=== PATIENT | female | born 1995 | race Two or more races ===

== ENCOUNTER 2024-11-08 15:45 | Emergency (ER) | payer OTHER ==
[~2024-11-08] VITALS: Ht 167.6 cm; Wt 81.2 kg
[2024-11-08] MEDS ORDERED: DOXYCYCLINE HY200 MG PO (18:22)
[2024-11-08] MEDS ORDERED: CEFTRIAXONE SODIUM 1,000 MG VIAL IM ONE (18:30)
[2024-11-08] MEDS ORDERED: KETOROLAC TROMETHAMINE 30 MG VIAL IM ONE (18:45)
== END 2024-11-08 18:41 | disposition home or self-care (01) ==
LOC: ER 15:45
DX: I86.3 Vulval varices (principal); J45.909 Unspecified asthma, uncomplicated

== ENCOUNTER 2024-11-13 10:27 | Outpatient (CLI) | payer OTHER ==
[~2024-11-13 10:27] MED LIST: DOXYCYCLINE HY200 MG PO
[2024-11-13 11:46] LABS: BASO % 0.9 % (0.1-1.2); EOS # 0.58 (0.04-0.54); EOS % 6.0 % (0.7-7.0); LYMPH # 2.47 (1.18-3.74); LYMPH % 25.4 % (19.3-53.1); MEAN PLATELET VOLUME 9.70 fl (9.4-12.4); MONO # 0.63 (0.24-0.82); MONO % 6.5 % (4.7-12.5); NEUT # 5.93 (1.56-6.13); NEUT % 60.8 % (34.0-71.1); RED CELL DISTRIBUTION WIDTH 13.2 % (11.6-14.4)
[2024-11-13 11:56] LABS: URINE APPEARANCE Cloudy; URINE BILIRRUBIN Negative (NEGATIVE); URINE BLOOD Trace; URINE COLOR Yellow; URINE GLUCOSE Negative (NEGATIVE); URINE KETONE Trace (NEGATIVE); URINE LEUKOCYTE Large; URINE NITRATE Negative; URINE PROTEIN Trace (NEGATIVE); URINE UROBILINOGEN 0.2 E.U./dl
[2024-11-13 12:00] LABS: URINE RBC 47.0 uL (0.0-20.8); URINE WBC 346.3 uL (0.0-23.2)
[2024-11-13 13:13] LABS: URINE BACTERIA > 9821.5 uL (0.0-1933); URINE CAST 0.14 uL (0.0-1.40); URINE EPITHELIAL CELLS > 201.7 uL (0.0-38.8)
[2024-11-13 13:14] LABS: TYPE CELLS SQUAMOUS
[2024-11-13] MEDS ORDERED: ZOVIRAX400 MG PO (19:40)
[2024-11-13] MEDS ORDERED: PEPCID AC20 MG PO (19:40)
[2024-11-13] MEDS ORDERED: ZOVIRAX5 GM TOP (19:40)
[2024-11-15 07:10] LABS: HSV I IGG TYPE SPECIFIC Non Reactive (Non Reactive)
[2024-11-15 21:12] LABS: chla t Negative (Negative); neiss Negative (Negative)
== END 2024-11-13 10:32 | disposition home or self-care (01) ==
LOC: LAB 10:27
PROVIDERS: ATTEND Obstetrics & Gynecology
DX: N30.00 Acute cystitis without hematuria (principal); N76.2 Acute vulvitis; R10.2 Pelvic and perineal pain; E07.89 Other specified disorders of thyroid; A60.04 Herpesviral vulvovaginitis; A56.11 Chlamydial female pelvic inflammatory disease

== ENCOUNTER 2024-11-13 16:44 | Emergency (ER) | payer OTHER ==
[~2024-11-13] VITALS: Ht 167.6 cm; Wt 80.7 kg
[2024-11-13] MEDS ORDERED: KETOROLAC TROMETHAMINE 30 MG VIAL ONE (18:06)
[2024-11-13] MEDS ORDERED: ACYCLOVIR SODIUM 500 MG VIAL IV ONE (18:15)
[2024-11-13] MEDS ORDERED: KETOROLAC TROMETHAMINE 60 MG VIAL IM ONE (18:15)
[2024-11-13] MEDS ORDERED: PEPCID AC20 MG PO (19:40)
[2024-11-13] MEDS ORDERED: ZOVIRAX400 MG PO (19:40)
[2024-11-13] MEDS ORDERED: ZOVIRAX5 GM TOP (19:40)
== END 2024-11-13 20:07 | disposition home or self-care (01) ==
LOC: ER 16:45
DX: A60.00 Herpesviral infection of urogenital system, unspecified (principal); J45.909 Unspecified asthma, uncomplicated

== ENCOUNTER 2024-11-14 15:18 | Emergency (ER) | payer OTHER ==
[~2024-11-14] VITALS: Ht 167.6 cm; Wt 80.7 kg
[~2024-11-14 15:18] MED LIST changes: +PEPCID AC20 MG PO; +ZOVIRAX400 MG PO; +ZOVIRAX5 GM TOP
== END 2024-11-14 23:12 | disposition home or self-care (01) ==
LOC: ER 15:35
DX: B02.9 Zoster without complications (principal); A60.00 Herpesviral infection of urogenital system, unspecified; N39.0 Urinary tract infection, site not specified

== ENCOUNTER → 2024-12-06 06:19 | Outpatient (CLI) | payer OTHER ==
[2024-12-06 07:14] LABS: URINE APPEARANCE Clear; URINE BILIRRUBIN Negative (NEGATIVE); URINE BLOOD Negative; URINE COLOR Yellow; URINE GLUCOSE Negative (NEGATIVE); URINE KETONE Negative (NEGATIVE); URINE LEUKOCYTE Negative; URINE NITRATE Negative; URINE PROTEIN Negative (NEGATIVE); URINE UROBILINOGEN 0.2 E.U./dl
[2024-12-06 07:18] LABS: URINE BACTERIA 665.9 uL (0.0-1933); URINE EPITHELIAL CELLS 17.3 uL (0.0-38.8); URINE WBC 5.9 uL (0.0-23.2)
[2024-12-06 07:27] LABS: URINE CAST 0.00 uL (0.0-1.40); URINE RBC 1.9 uL (0.0-20.8)
[2024-12-06 07:29] LABS: BASO % 0.9 % (0.1-1.2); EOS # 0.62 (0.04-0.54); EOS % 7.2 % (0.7-7.0); LYMPH # 2.84 (1.18-3.74); LYMPH % 32.9 % (19.3-53.1); MEAN PLATELET VOLUME 9.60 fl (9.4-12.4); MONO # 0.67 (0.24-0.82); MONO % 7.8 % (4.7-12.5); NEUT # 4.39 (1.56-6.13); NEUT % 50.9 % (34.0-71.1); RED CELL DISTRIBUTION WIDTH 13.2 % (11.6-14.4)
[2024-12-06 07:36] LABS: INR 1.02
[2024-12-06 07:42] LABS: ALT/SGPT 26.0 U/L (12-78); AST/SGOT 11.0 U/L (15-37); BILIRUBIN TOTAL 0.47 mg/dL (0.3-1.2); BUN CREA RATIO 27.0 (7.0-25.0); CREATININE SERUM 0.73 mg/dL (0.55-1.02); GFR 94.93; GLOBULINA 3.3 G/DL (2.4-3.5); GLUCOSE FASTING 85.0 mg/dL (65-100); OSMOLALITY SERUM 283.0 MOSM/KG (275-295)
== END | disposition home or self-care (01) ==
LOC: LAB 06:19
PROVIDERS: ATTEND Plastic Surgery
DX: D68.9 Coagulation defect, unspecified (principal)

== ENCOUNTER 2024-12-06 07:06 | Outpatient (CLI) | payer OTHER | END 2024-12-06 07:09 | disposition home or self-care (01) | LOC: RAD 07:06 | PROVIDERS: ATTEND Plastic Surgery | DX: N64.59 Other signs and symptoms in breast (principal); Z41.1 Encounter for cosmetic surgery; Z01.811 Encounter for preprocedural respiratory examination ==

== ENCOUNTER 2025-02-06 09:47 | Emergency (ER) | payer OTHER ==
[~2025-02-06] VITALS: Ht 167.6 cm; Wt 77.1 kg
[2025-02-06 10:26] VITALS: BP 121/76; O2SAT 99
[2025-02-06] MEDS ORDERED: 0.9 % SODIUM CHLORIDE 500 ML IV SCH (11:45)
[2025-02-06] MEDS ORDERED: KETOROLAC TROMETHAMINE 30 MG VIAL IV ONE (11:45)
[2025-02-06 12:39] LABS: BASO % 0.9 % (0.1-1.2); EOS # 0.48 (0.04-0.54); EOS % 5.8 % (0.7-7.0); LYMPH # 2.13 (1.18-3.74); LYMPH % 25.9 % (19.3-53.1); MEAN PLATELET VOLUME 9.30 fl (9.4-12.4); MONO # 0.50 (0.24-0.82); MONO % 6.1 % (4.7-12.5); NEUT # 5.03 (1.56-6.13); NEUT % 61.1 % (34.0-71.1); RED CELL DISTRIBUTION WIDTH 12.9 % (11.6-14.4)
[2025-02-06 12:52] LABS: ERYTHROCYTE SEDIMENTATION RATE 15 mm/hr (0-20)
[2025-02-06 13:01] LABS: INR 0.98
[2025-02-06 13:07] LABS: ALT/SGPT 40 U/L (12-78); AST/SGOT 21 U/L (15-37); BILIRUBIN TOTAL 0.60 mg/dL (0.3-1.2); BUN CREA RATIO 24 (7.0-25.0); CREATININE SERUM 0.68 mg/dL (0.55-1.02); GFR 103.03; GLOBULINA 3.6 G/DL (2.4-3.5); GLUCOSE FASTING 94 mg/dL (65-100); OSMOLALITY SERUM 278 MOSM/KG (275-295)
[2025-02-06 13:08] LABS: HCG QUANTITATIVE < 1 mUI/mL (1-3)
[2025-02-06 13:45] LABS: URINE APPEARANCE Clear; URINE BILIRRUBIN Negative (NEGATIVE); URINE BLOOD Trace; URINE COLOR Yellow; URINE GLUCOSE Negative (NEGATIVE); URINE KETONE Negative (NEGATIVE); URINE LEUKOCYTE Moderate; URINE NITRATE Negative; URINE PROTEIN Negative (NEGATIVE); URINE UROBILINOGEN 0.2 E.U./dl
[2025-02-06 14:09] LABS: URINE BACTERIA MANY; URINE MUCUS SCANT; URINE WBC 21-30 /hpf
[2025-02-06] MEDS ORDERED: CIPRO500 MG PO (18:36)
[2025-02-06] MEDS ORDERED: IBU600 MG PO (18:36)
[2025-02-06] MEDS ORDERED: URETRON D-S TAB1 TAB PO (18:36)
[2025-02-06] MEDS ORDERED: PEPCID AC20 MG PO (18:36)
== END 2025-02-06 22:37 | disposition home or self-care (01) ==
LOC: ER 09:48
DX: N39.0 Urinary tract infection, site not specified (principal); B02.9 Zoster without complications; A60.00 Herpesviral infection of urogenital system, unspecified

== ENCOUNTER 2025-02-12 00:23 | Emergency (ER) | payer OTHER ==
[~2025-02-12] VITALS: Ht 167.6 cm; Wt 78.0 kg
[~2025-02-12 00:23] MED LIST changes: +CIPRO500 MG PO; +IBU600 MG PO; +URETRON D-S TAB1 TAB PO
[2025-02-12 00:27] VITALS: BP 114/81; O2SAT 95
[2025-02-12] MEDS ORDERED: HYDROCODONE/CHLORPHEN P-STIREX 5 ML ML PO STA (01:37)
[2025-02-12] MEDS ORDERED: METHYLPREDNISOLONE SOD SUCC 125 MG VIAL IV STA (01:38)
[2025-02-12] MEDS ORDERED: ALBUTEROL SULFATE 3 ML/2.5 MG AMPUL.NEB IH SCH (01:45)
[2025-02-12] MEDS ORDERED: METHYLPREDNISOLONE SOD SUCC 125 MG VIAL ONE (01:49)
[2025-02-12] MEDS ORDERED: ALBUTEROL SULFATE 3 ML/2.5 MG AMPUL.NEB IH ONE (02:05)
[2025-02-12 02:21] LABS: BASO % 0.8 % (0.1-1.2); EOS # 1.15 (0.04-0.54); EOS % 9.8 % (0.7-7.0); LYMPH # 2.62 (1.18-3.74); LYMPH % 22.4 % (19.3-53.1); MEAN PLATELET VOLUME 9.40 fl (9.4-12.4); MONO # 0.84 (0.24-0.82); MONO % 7.2 % (4.7-12.5); NEUT # 6.93 (1.56-6.13); NEUT % 59.3 % (34.0-71.1); RED CELL DISTRIBUTION WIDTH 13.0 % (11.6-14.4)
[2025-02-12 03:21] LABS: COVID-19 AG NEGATIVE (NEGATIVE)
[2025-02-12] MEDS ORDERED: ALBUTEROL2.5 MG/3 M IH (04:14)
[2025-02-12] MEDS ORDERED: ZYNCOF 20-400120 ML PO (04:14)
[2025-02-12] MEDS ORDERED: BUDESONIDE0.5 MG/2 M IH (04:14)
== END 2025-02-12 04:30 ==
LOC: ER 00:23
PROVIDERS: General Practice
DX: J45.901 Unspecified asthma with (acute) exacerbation (principal); R05.9 Cough, unspecified; Z20.822 Contact with and (suspected) exposure to COVID-19